=== PATIENT | male | born 1975 | race Caucasian/White ===

== ENCOUNTER 2017-11-23 11:47 | Day surgery (SDC) | payer OTHER ==
[~2017-11-23 11:47] MED LIST: Acetaminophen/HYDROcodone 325-5 MG Tab PO PRN; Dexamethasone 4 MG/ML 5 ML MDV ONE; Lactated Ringers 1,000 ML IV SCH; Lidocaine 1% 20 ML MDV ONE; Midazolam 1 MG/ML 2 ML SDV ONE; Ondansetron 4 MG/2 ML SDV ONE; Propofol 200 MG/20 ML SDV ONE; ceFAZolin 1 GM Vial ONE; ceFAZolin 2 GM in Premix Bag 1 BAG IV SCH; diphenhydrAMINE 50 MG/ML SDV ONE; fentaNYL 250 MCG/5 ML SDV ONE
--- NOTE | 2017-11-23 12:29 | PCM.PREANE ---
Preanesthetic Assessment - Anesthesia/Transfusion/Family Hx Anesthesia History: Prior Anesthesia Without Reaction Family History of Anesthesia Reaction: No Transfusion History: No Prior Transfusion(s) - Review of Systems General: No Symptoms Pulmonary: No Symptoms Cardiovascular: No Symptoms Gastrointestinal: No Symptoms Neurological: No Symptoms Other: Reports: None - Physical Assessment NPO Status Date: 11/22/17 O2 Sat by Pulse Oximetry: 97 Respiratory Rate: 16 Vital Signs: Last Vital Signs Temp 36.3 C 11/23/17 12:21 Pulse 86 11/23/17 12:21 Resp 16 11/23/17 12:21 BP 137/86 11/23/17 12:21 Pulse Ox 97 11/23/17 12:21 Height: 1.73 m Weight: 113.398 kg ASA Class: 2 Mental Status: Alert & Oriented x3 Airway Class: Mallampati = 2 Dentition: Reports: Normal Dentition ROM/Head Extension: Full Lungs: Clear to Auscultation, Normal Respiratory Effort Cardiovascular: Regular Rate, Regular Rhythm - Allergies Allergies/Adverse Reactions: Allergies Allergy/AdvReac Type Severity Reaction Status Date / Time No Known Allergies Allergy Verified 11/17/17 07:37 - Anesthesia Plan Pre-Op Medication Ordered: None (PMH: smoker) - Acknowledgements Anesthesia Type Planned: General Anesthesia Pt an Appropriate Candidate for the Planned Anesthesia: Yes Alternatives and Risks of Anesthesia Discussed w Pt/Guardian: Yes Pt/Guardian Understands and Agrees with Anesthesia Plan: Yes PreAnesthesia Questionnaire Respiratory History: Reports: Asthma Musculoskeletal History: Reports: Fracture Other Musculoskeletal History: fx hand Endocrine/Metabolic History: Reports: Obesity/BMI 30+ - Past Surgical History Head Surgeries/Procedures: Reports: None GI Surgical History: Reports: Hernia, Inguinal Other GI Surgeries/Procedures: hernia repair at 5 y/o - SUBSTANCE USE Smoking Status *Q: Current Every Day Smoker Tobacco Use Within Last Twelve Months: Cigarettes Recreational Drug Use History: No - HOME MEDS Home Medications: Home Meds Albuterol [Ventolin HFA] 1 - 2 puff INH ASDIRECTED PRN 11/17/17 [History] traMADol HCl [Tramadol HCl] 1 tab PO ASDIRECTED PRN 11/17/17 [History] - CURRENT (IN HOUSE) MEDS Current Meds: Current Medications Hydrocodone Bitart/Acetaminophen ([place] 325-5 Mg) 1 - 2 tab PO Q4H PRN PRN Reason: Pain Cefazolin Sodium/Dextrose 2 gm (/ Premix) 50 mls @ 100 mls/hr IV ONCALL [facility] Lactated Ringer's (Ringers, Lactated) 1,000 mls @ 100 mls/hr IV ASDIRECTED [facility] Last Admin: 11/23/17 12:28 Dose: 100 mls/hr Discontinued Medications Cefazolin Sodium (Ancef) Confirm Administered Dose 2 gm .ROUTE .STK-MED ONE Stop: 11/23/17 10:13 Dexamethasone (Dexamethasone) Confirm Administered Dose 20 mg .ROUTE .STK-MED ONE Stop: 11/23/17 10:13 Diphenhydramine HCl (Benadryl) Confirm Administered Dose 50 mg .ROUTE .STVM [facility]-MED ONE Stop: 11/23/17 10:13 Fentanyl (Sublimaze) Confirm Administered Dose 250 mcg .ROUTE .STK-MED ONE Stop: 11/23/17 10:14 Lidocaine HCl (Xylocaine 1%) Confirm Administered Dose 20 ml .ROUTE .STK-MED ONE Stop: 11/23/17 07:53 Midazolam HCl (Versed 1 Mg/Ml) Confirm Administered Dose 2 mg .ROUTE .STK-MED ONE Stop: 11/23/17 10:14 Ondansetron HCl (Zofran) Confirm Administered Dose 4 mg .ROUTE .STK-MED ONE Stop: 11/23/17 10:13 Propofol (Diprivan 20 Ml) Confirm Administered Dose 200 mg .ROUTE .STK-MED ONE Stop: 11/23/17 10:14
[2017-11-23] MEDS ORDERED: Albuterol 6.7 GM Inhaler INH ONE (14:30)
--- NOTE | 2017-11-23 15:08 | PCM.OPNOTE ---
- General Post-Op/Procedure Note Date of Surgery/Procedure: 11/23/17 Operative Procedure(s): R knee scope with PMM Post-Op Diagnosis: R knee medial meniscus tear. R knee ACL tear Anesthesia Technique: General LMA Primary Surgeon: Sheri Hedrick Community Arts Worker: Dasha Bush in mLs: 5 Condition: Good Free Text/Narrative:: tt=25 min #[id number]
--- NOTE | 2017-11-23 15:30 | PCM.POSTAN ---
POST ANESTHESIA ASSESSMENT - MENTAL STATUS Mental Status: Alert, Oriented - RESPIRATORY Respiratory Status: Respiratory Rate WNL, Airway Patent, O2 Saturation Stable - CARDIOVASCULAR CV Status: Pulse Rate WNL, Blood Pressure Stable - GASTROINTESTINAL GI Status: No Symptoms - PAIN Pain Score: 2 - POST OP HYDRATION Hydration Status: Adequate & Stable
--- NOTE | 2017-11-23 16:13 | PCM48HPAN ---
Post Anesthesia Note - EVALUATION WITHIN 48HRS OF ANESTHETIC Vital Signs in Normal Range: Yes Patient Participated in Evaluation: Yes Respiratory Function Stable: Yes Airway Patent: Yes Cardiovascular Function Stable: Yes Hydration Status Stable: Yes Pain Control Satisfactory: Yes Nausea and Vomiting Control Satisfactory: Yes Mental Status Recovered: Yes
--- NOTE | 2017-11-23 18:17 | OR ---
SURGEON: Sheri Hedrick MD DATE OF PROCEDURE: 11/23/2017 PREOPERATIVE DIAGNOSES: 1. Degenerative joint disease, right knee. 2. Right knee anterior cruciate ligament tear. 3. Right knee medial meniscus tear. POSTOPERATIVE DIAGNOSES: 1. Right knee anterior cruciate ligament tear. 2. Right knee medial meniscus tear. PROCEDURE: Right knee arthroscopy with partial medial meniscectomy. RIG SITE ENGINEER: Dasha Bush RN. ANESTHESIA: General. ESTIMATED BLOOD LOSS: 5 mL. TOURNIQUET TIME: 25 minutes. COMPLICATIONS: None. DVT PROPHYLAXIS: Not indicated. IMPLANTS USED: None. BRIEF HISTORY: Dean is a 42-year-old male who injured his right knee while at work. An MRI did show a tear of the ACL along with a displaced tear of the medial meniscus. Due to his lack of response to conservative treatment, I did recommend surgical intervention. The risks and goals of procedure were discussed with the patient and were documented preoperatively. He agreed to proceed. Preoperative x-rays did show joint space narrowing along the medial compartment and it was elected to hold off on ACL reconstruction until we were able to further evaluate the chondral surfaces. DESCRIPTION OF PROCEDURE: The patient was properly identified and brought to the operating room. He was transferred from the OR cart and placed on the operating table in supine position. General anesthesia was administered. After adequate anesthesia was obtained, a well-padded tourniquet was applied to the right lower extremity. The right lower extremity was then prepped in standard fashion using ChloraPrep solution. It was then sterilely draped. A time-out was performed to ensure correct site and procedure. Preoperative antibiotics were given. The surgical site had been marked preoperatively. The tourniquet was then inflated to 250 mmHg. A lateral portal arthrotomy was established. Blunt trocar and cannula were introduced into the suprapatellar pouch. Camera, inflow, and outflow were assembled. No significant synovitis was noted. The patellofemoral joint was visualized. Minor grade 2 chondromalacia was noted along the inferior portion of the patella. The patella appeared to track centrally. I then extended down the lateral and medial gutter. No loose bodies were identified. I then entered the medial compartment. A medial portal arthrotomy was established. Immediately evident was a displaced bucket-handle tear of the medial meniscus which had flipped anteriorly. Once the portal was established. This was pushed back into position. I was able to visualize the tear. It was quite degenerative in nature and did not appear to be amenable to repair. I elected to proceed with a partial meniscectomy. This was performed without difficulty. At the completion of the partial meniscectomy, the edges were probed and were found to be stable. The joint surfaces were also inspected. Grade 1 to grade 2 chondromalacia was noted diffusely. I then entered the notch. A large portion of the remaining stump of the ACL was noted. This was found to be very loosely attached and therefore I resected it with the shaver. The remainder of the ACL was then probed. A small band of tissue remained attached to the lateral femoral condyle; however, no other attachment was found. The PCL appeared intact. I then entered the lateral compartment. The meniscus was probed and found to be stable. He had a few longitudinal fissures which were noted; however, no significant degenerative findings were found. The instruments were then removed from the knee. The portal sites were closed with 3-0 nylon. Lidocaine 1% was injected along the portal tracts. Xeroform gauze was placed over the wound and a bulky dressing was applied. We did place 1% lidocaine along the portal tracts prior to placement of the dressing. An Arnulfo wrap was placed and the tourniquet was deflated. He was awakened from his anesthetic and transferred back to the operating room cart. He was brought to recovery room in stable condition. All needle and sponge counts were correct. ДМИТРИЙ / TERESSA /[id number]
== END 2017-11-23 16:46 | disposition home or self-care (01) ==
LOC: MW.SDS 11:47
PROVIDERS: ATTEND Orthopaedic Surgery
DX: S83.241A Other tear of medial meniscus, current injury, right knee, initial encounter (principal); S83.511A Sprain of anterior cruciate ligament of right knee, initial encounter; W22.8XXA Striking against or struck by other objects, initial encounter; Y92.89 Other specified places as the place of occurrence of the external cause; F17.210 Nicotine dependence, cigarettes, uncomplicated
CPT/HCPCS: 29881; A9270; J0690; J1100; J1200; J2250; J2405; J3010; J7120; 01400; 88304; J2704